=== PATIENT | male | born 1965 | race Caucasian/White ===

== ENCOUNTER 2019-03-31 06:57 | Day surgery (SDC) | payer OTHER ==
[~2019-03-31] VITALS: Ht 182.9 cm; Wt 154.0 kg
[~2019-03-31 06:57] MED LIST: ATEN50 PO; FOLI1 PO; FURO20 PO; Hydroxyzine HCl50 MG PO; MELA3 PO; Nicoderm Cq1 EAC1 TOP; Prozac40 MG PO; SILDENAFIL CIT100 MG PO; TRAZ100 PO; XARELTO20 MG PO
[2019-03-31] MEDS ORDERED: Lipitor20 MG PO (09:44)
--- NOTE | 2019-03-31 11:54 | NUR ---
PT RIGHT RADIAL SITE APPEARS SOFT, NON-TENDER, NO ACTIVE BLEEDING, OOZING, OR PAIN NOTED. TR BAND REMOVED, RED CLOTH DOT DRESSING IN PLACE. ARM BOARD ON FOR SUPPORT, RIGHT ARM PLACED INTO SLING. PT VERBALIZED UNDERSTANDING OF D/C INSTRUCTIONS. PAPERWORK PROVIDED IN [facility]. IV REMOVED FROM LEFT WRIST WITH CATH INTACT. PRESSURE DRESSING APPLIED. NADN AT TIME OF DISPO. PT AMBULATES WITH STEADY GAIT. MOTHER ARRIVES TO DRIVE PT HOME. VSS. ENCOURAGED TO FOLLOW UP WITH PROVIDER SCHEDULED.
== END 2019-03-31 13:25 | disposition home or self-care (01) ==
LOC: MHTC 06:57
DX: I25.10 Atherosclerotic heart disease of native coronary artery without angina pectoris (principal); I10 Essential (primary) hypertension; I48.0 Paroxysmal atrial fibrillation; G47.33 Obstructive sleep apnea (adult) (pediatric); F17.210 Nicotine dependence, cigarettes, uncomplicated; E66.9 Obesity, unspecified; Z79.899 Other long term (current) drug therapy; Z79.01 Long term (current) use of anticoagulants; Z68.42 Body mass index [BMI] 45.0-49.9, adult
CPT/HCPCS: 93454; 99152; 99153; C1769; C1894; J1644; J2250; J3010; J7030; Q9967

== ENCOUNTER 2020-09-02 11:38 | Observation (INO) | payer OTHER ==
[~2020-09-02] VITALS: Ht 188 cm; Wt 159.5 kg
[~2020-09-02 11:38] MED LIST changes: -ATEN50 PO; -FOLI1 PO; -FURO20 PO; +Lipitor20 MG PO; -MELA3 PO; -TRAZ100 PO; -XARELTO20 MG PO
[2020-09-02 12:14] LABS: BASOPHILS ABSOLUTE AUTO 0.03 K/mm3 (0.00-0.23); BASOPHILS PERCENT AUTO 1 % (0-2); EOSINOPHILS ABSOLUTE AUTO 0.04 K/mm3 (0.00-0.68); EOSINOPHILS PERCENT AUTO 1 % (0-6); Hematocrit 43.7 % (37.0-53.0); Hemoglobin 14.8 g/dL (13.5-17.5); IMMATURE GRAN ABSOLUTE AUTO 0.04 K/mm3 (0.00-0.10); IMMATURE GRAN PERCENT AUTO 1 % (0-1); LYMPHOCYTES PERCENT AUTO 27 % (21-46); MONOCYTES ABSOLUTE AUTO 0.87 K/mm3 (0.16-1.47); MONOCYTES PERCENT AUTO 15 % (4-13); Mean Corpuscular HGB 33.3 pg (26.0-34.0); Mean Corpuscular HGB Conc 33.9 g/dL (31.5-36.5); Mean Corpuscular Volume 98 fL (80-100); Mean Platelet Volume 10.1 fL (9.1-12.4); NEUTROPHILS ABSOLUTE AUTO 3.33 K/mm3 (1.96-9.15); NEUTROPHILS PERCENT AUTO 56 % (41-73); NRBC ABSOLUTE 0.02 K/mm3 (0.00-0.02); NRBC Auto 0.3 /100 WBC (0.0-0.2); Platelet Count 160 K/mm3 (150-400); RDW Coefficient Variation 12.3 % (11.7-14.2); RDW Standard Deviation 44.7 fL (35.1-46.3); Red Blood Cell Count 4.45 M/mm3 (4.30-5.90); White Blood Cell Count 5.91 K/mm3 (4.00-11.30)
[2020-09-02 12:34] LABS: Alanine Aminotransfer (ALT/SGP 150 U/L (12-78); Albumin, Blood 3.5 g/dL (3.4-5.0); Albumin/Globulin Ratio 0.9 (0.8-1.8); Alk Phos 88 U/L (50-136); Anion Gap 12 mmol/L (6-16); Aspartate Aminotrans (AST/SGOT 158 U/L (12-37); Bilirubin, Total 2.2 mg/dL (0.1-1.0); Blood Urea Nitrogen 7 mg/dL (8-24); Bun/Creatinine Ratio 7.8 (12.0-20.0); CO2, Blood 32 mmol/L (21-32); Calcium, Blood 9.1 mg/dL (8.5-10.1); Chloride, Blood 93 mmol/L (98-108); Creatinine, Blood 0.89 mg/dL (0.60-1.20); Globulin, Blood 3.9 g/dL (2.2-4.0); Glomerular Filtration Rate >60 (60-); Glucose, Blood 164 mg/dL (70-99); Potassium, Blood 3.3 mmol/L (3.5-5.5); Sodium, Blood 137 mmol/L (136-145); Total Protein, Blood 7.4 g/dL (6.4-8.2); Troponin I <0.015 ng/mL (0.000-0.040)
[2020-09-02] MEDS ORDERED: ATEN25 PO (13:57)
[2020-09-02] MEDS ORDERED: FOLI1 PO (13:58)
[2020-09-02] MEDS ORDERED: XARELTO20 MG PO (13:58)
[2020-09-02] MEDS ORDERED: POTA10T PO (13:59)
[2020-09-02] MEDS ORDERED: FURO40 PO (13:59)
[2020-09-02] MEDS ORDERED: VITAMIN D31000 UNI1 PO (14:00)
[2020-09-02] MEDS ORDERED: TRAZ100 PO (14:01)
[2020-09-02] MEDS ORDERED: MELA3 PO (14:01)
--- NOTE | 2020-09-02 18:14 | NUR ---
NEW ER ADMIT. ARRIVE TO 363 APPROX 1700. PT IS A/O X4, PLEASANT AFFECT. STATE REASON FOR HOSP ONGOING DIZZINESS/LIGHTHEADEDNESS WHEN UP. STATE MULT FALLS @ HOME & HAS EVEN "BLACKED OUT". STATE PROBLEM HAS BEEN ONGOING FOR MONTHS. STATE NO LIGHTHEADNESS @ REST GENERALLY. STATE HX JAKOB, S/O BRING IN HOME CPAP, RT NOTIFIED. PT STATE HX ETOH ABUSE & ETOH W/D SYMPTOMS, DR JOY NOTIFIED, PLACE ETOH/CIWA ORDERS. PT STATE HX AFIB, ON XARELTO, TELE NSR 80-90 SKIN IS FLUSHED, BILAT HAND TREMOR NOTED, CIWA 5 @ THIS TIME, VSS. CARDIAC DINNER TRAY ORDERED. PT ORIENTED TO , CALL SYSTEM, FALL & ETOH W/D PRECAUTIONS.
[2020-09-03 05:08] LABS: Anion Gap 5 mmol/L (6-16); Blood Urea Nitrogen 9 mg/dL (8-24); Bun/Creatinine Ratio 9.4 (12.0-20.0); CO2, Blood 37 mmol/L (21-32); Calcium, Blood 9.2 mg/dL (8.5-10.1); Chloride, Blood 92 mmol/L (98-108); Creatinine, Blood 0.96 mg/dL (0.60-1.20); Glomerular Filtration Rate >60 (60-); Glucose, Blood 169 mg/dL (70-99); Potassium, Blood 3.4 mmol/L (3.5-5.5); Sodium, Blood 134 mmol/L (136-145)
--- NOTE | 2020-09-03 05:39 | NUR ---
SHIFT SUMMARY- PT. A&O, PLEASANT, AND COOPERATIVE WITH CARE. INDEPENDENT IN ROOM, INSTRUCTED TO CALL FOR ASSISTANCE W/AMBULATION FOR DIZZINESS, WEAKNESS OR PRN, VERBALIZED UNDERSTANDING. DENIED ANY PAIN OR DISCOMFORT T/O THE NIGHT. CIWA SCORE= 3. PT. WITH C/O MILD ANXIETY, REQUESTED ATIVAN. MEDICATED WITH ATIVAN PER ORDER, PT. REPORTED GOOD EFFECT. APPEARED TO HAVE SLEPT COMFORTABLY T/O THE NIGHT WITH CPAP IN PLACE, NO APPARENT DISTRESS NOTED. VSS, PT. ANTICIPATING D/C TODAY. CALL LIGHT WITHIN REACH AND SIDE RAILS UPX2. WILL CONT TO MONITOR.
[2020-09-03] MEDS ORDERED: METO25 PO (11:38)
--- NOTE | 2020-09-03 11:54 | NUR ---
DISCHARGE PT UP IN CHAIR THIS AM FOR BF. STATE NO DIZZINESS @ REST HOWEVER STATES CONTINUES INTERMITTANTLY WHEN UP. PHYTHER EVAL THIS AM STATE PT BP DID DROP FROM SITTING STEVEN STANDING, 117/60 SITTING TO 100/[address] SCHULTZ NOTIFIED DURING AM ROUNDING, STATE PT MAY GO HOME TODAY w [facility], [facility] FITTER NOTIFY HRT CTR. IV D/C INTACT. TELE D/C'D. PT ASSISTED TO SHOWER. CIWA THIS AM 2 D/T BUE TREMOR. PT EDUCATED R/T ABSTINECE ETOH HOWEVER STATE @ THIS TIME NOT READY, STATE KNOWLEDGE OF STEPS TO TAKE WHEN READY TO QUIT.
--- NOTE | 2020-09-03 13:22 | NUR ---
HRT CTR OVER TO PLACE BIO PATCH, GIVE INSTRUCTIONS, PT TO F/U w PON[facility] ROLL FINISHER 1 WK HE STATE HE WILL CALL DR MENENDEZ TO SET UP APPOINT. ADDITIONAL D/C INSTRUCT REVIEWED w PT, NEW SCRIPT SENT TO [facility]/REQUEST. W/C ESCORT FROM HOSP PROVIDED, HERE FOR TRANSPORT HOME.
== END 2020-09-03 12:57 | disposition home or self-care (01) ==
LOC: ER 11:38 → MEDS 11:39
PROVIDERS: Nurse Practitioner Acute Care; Physician Assistant; ADMIT Internal Medicine
DX: R55 Syncope and collapse (principal); I48.0 Paroxysmal atrial fibrillation; E66.01 Morbid (severe) obesity due to excess calories; I10 Essential (primary) hypertension; G47.33 Obstructive sleep apnea (adult) (pediatric); F10.20 Alcohol dependence, uncomplicated; Z79.01 Long term (current) use of anticoagulants; Z96.652 Presence of left artificial knee joint; Z98.84 Bariatric surgery status; Z87.891 Personal history of nicotine dependence; Z91.81 History of falling; Z68.41 Body mass index [BMI] 40.0-44.9, adult
CPT/HCPCS: 36415; 71046; 80048; 80053; 82607; 82746; 83880; 84484; 85025; 93005; 93010; 93246; 94762; 97161; 99285-25; A9270; G0378

== ENCOUNTER 2020-10-21 00:47 | Inpatient (IN) | payer OTHER ==
[~2020-10-21] VITALS: Ht 182.9 cm; Wt 169.2 kg
[~2020-10-21 00:47] MED LIST changes: +ATEN25 PO; +FOLI1 PO; +FURO40 PO; +MELA3 PO; +METO25 PO; +POTA10T PO; +TRAZ100 PO; +VITAMIN D31000 UNI1 PO; +XARELTO20 MG PO
[2020-10-21 01:11] LABS: PO2 Arterial 62.2 mmHg (80-100)
[2020-10-21 01:12] LABS: PCO2 Arterial 77 mmHg (35-45); pH Blood Arterial 7.04 (7.35-7.45)
[2020-10-21 01:19] LABS: BASOPHILS ABSOLUTE AUTO 0.04 K/mm3 (0.00-0.23); BASOPHILS PERCENT AUTO 1 % (0-2); EOSINOPHILS ABSOLUTE AUTO 0.06 K/mm3 (0.00-0.68); EOSINOPHILS PERCENT AUTO 1 % (0-6); Hematocrit 40.9 % (37.0-53.0); Hemoglobin 12.6 g/dL (13.5-17.5); Mean Corpuscular HGB 33.8 pg (26.0-34.0); Mean Corpuscular HGB Conc 30.8 g/dL (31.5-36.5); Mean Corpuscular Volume 110 fL (80-100); Mean Platelet Volume 10.7 fL (9.1-12.4); NRBC ABSOLUTE 0.06 K/mm3 (0.00-0.02); NRBC Auto 0.8 /100 WBC (0.0-0.2); Platelet Count 128 K/mm3 (150-400); RDW Coefficient Variation 13.4 % (11.7-14.2); RDW Standard Deviation 55.2 fL (35.1-46.3); Red Blood Cell Count 3.73 M/mm3 (4.30-5.90); White Blood Cell Count 7.71 K/mm3 (4.00-11.30)
[2020-10-21 01:20] LABS: IMMATURE GRAN ABSOLUTE AUTO 0.39 K/mm3 (0.00-0.10); IMMATURE GRAN PERCENT AUTO 5 % (0-1); LYMPHOCYTES ABSOLUTE AUTO 4.44 K/mm3 (0.84-5.20); LYMPHOCYTES PERCENT AUTO 58 % (21-46); MONOCYTES ABSOLUTE AUTO 0.42 K/mm3 (0.16-1.47); MONOCYTES PERCENT AUTO 5 % (4-13); NEUTROPHILS ABSOLUTE AUTO 2.36 K/mm3 (1.96-9.15); NEUTROPHILS PERCENT AUTO 31 % (41-73)
[2020-10-21 01:20] LABS: Source, Urine Catheter
[2020-10-21 01:24] LABS: Bilirubin, Urine Neg (Neg); Blood, Urine Neg (Neg); Glucose Qualitative, Urine Neg (Neg); Ketones, Urine Neg (Neg); Leukocyte Esterase, Urine Neg (Neg); Nitrite, Urine Neg (Neg); Protein, Urine Neg (Neg); Urobilinogen, Urine NORM (Normal)
[2020-10-21 01:27] LABS: Appearance, Urine Clear (Clear); Color, Urine Yellow (P-Yellow)
[2020-10-21 01:35] LABS: U Amphetamine Screen Not Detected; U Barbituate Screen Not Detected; U Benzodiazapine Screen Not Detected; U Buprenorphine Screen Not Detected; U Cannabinoids Screen DETECTED; U Cocaine Screen Not Detected; U Methadone Screen Not Detected; U Methamphetamine Screen Not Detected; U Opiates Screen Not Detected; U Oxycodone Screen Not Detected; U Phencyclidine Screen Not Detected; U Propoxyphene Screen Not Detected
[2020-10-21 01:46] LABS: Alanine Aminotransfer (ALT/SGP 107 U/L (12-78); Albumin, Blood 2.8 g/dL (3.4-5.0); Albumin/Globulin Ratio 0.8 (0.8-1.8); Alk Phos 110 U/L (50-136); Anion Gap 22 mmol/L (6-16); Aspartate Aminotrans (AST/SGOT 175 U/L (12-37); Bilirubin, Total 1.1 mg/dL (0.1-1.0); Blood Urea Nitrogen 9 mg/dL (8-24); Bun/Creatinine Ratio 9.1 (12.0-20.0); CO2, Blood 21 mmol/L (21-32); Calcium, Blood 8.6 mg/dL (8.5-10.1); Chloride, Blood 97 mmol/L (98-108); Creatinine, Blood 0.99 mg/dL (0.60-1.20); Ethanol (Alcohol), Blood, Med 121 mg/dL; Globulin, Blood 3.5 g/dL (2.2-4.0); Glomerular Filtration Rate >60 (60-); Glucose, Blood 329 mg/dL (70-99); Magnesium, Blood 2.5 mg/dL (1.6-2.4); Potassium, Blood 4.1 mmol/L (3.5-5.5); Sodium, Blood 140 mmol/L (136-145); Total Protein, Blood 6.3 g/dL (6.4-8.2); Troponin I 0.046 ng/mL (0.000-0.040)
[2020-10-21 03:02] LABS: PCO2 Arterial 48.1 mmHg (35-45); PO2 Arterial 208 mmHg (80-100); pH Blood Arterial 7.19 (7.35-7.45)
[2020-10-21 04:11] LABS: Hematocrit 45.8 % (37.0-53.0); Hemoglobin 14.9 g/dL (13.5-17.5); Mean Corpuscular HGB 33.9 pg (26.0-34.0); Mean Corpuscular HGB Conc 32.5 g/dL (31.5-36.5); Mean Platelet Volume 10.2 fL (9.1-12.4); NRBC ABSOLUTE 0.05 K/mm3 (0.00-0.02); NRBC Auto 0.4 /100 WBC (0.0-0.2); Platelet Count 143 K/mm3 (150-400); RDW Coefficient Variation 13.4 % (11.7-14.2); RDW Standard Deviation 52.2 fL (35.1-46.3); Red Blood Cell Count 4.39 M/mm3 (4.30-5.90); White Blood Cell Count 11.41 K/mm3 (4.00-11.30)
[2020-10-21 04:12] LABS: Mean Corpuscular Volume 104 fL (80-100)
[2020-10-21 04:25] LABS: Anion Gap 21 mmol/L (6-16); Blood Urea Nitrogen 11 mg/dL (8-24); Bun/Creatinine Ratio 9.1 (12.0-20.0); CO2, Blood 22 mmol/L (21-32); Calcium, Blood 8.6 mg/dL (8.5-10.1); Chloride, Blood 99 mmol/L (98-108); Creatinine, Blood 1.21 mg/dL (0.60-1.20); Glomerular Filtration Rate >60 (60-); Glucose, Blood 229 mg/dL (70-99); Potassium, Blood 3.4 mmol/L (3.5-5.5); Sodium, Blood 142 mmol/L (136-145)
--- NOTE | 2020-10-21 05:28 | NUR ---
IO TO LEFT LEG REMOVED WITHOUT DIFFICULTY
--- NOTE | 2020-10-21 06:30 | NUR ---
SUMMARY PATIENT ARRIVED TO ICU AT 0330, PATIENT TRANSFERRED TO BED USING SLIDER SHEET AND PLACED ON ICU MONITORS. PATIENT INCONT OF LIQUID ORANGE/RED STOOL TWICE, RECTAL TUBE PLACED AND PATIENT HAD ANOTHER 500 CC OF LIQUID STOOL. SPEC SENT TO LAB. PATIENT REMAINS INTUBATED AND SEDATED, VENT AC 20, TV 550, PEEP 10, FIO2 60% FENTANYL 50 MCG/HR AND VERSED 4 MG/HR FOR SEDATION. LEVOPHED TITRATED OFF. OG IN PLACE PLACED TO LIS WITH NO DRAINAGE.
[2020-10-21 07:00] LABS: Adenovirus F 40/41 Not Detected (NOT DETECT); Astrovirus Not Detected (NOT DETECT); Campylobacter Sp Not Detected (NOT DETECT); Cryptosporidium Not Detected (NOT DETECT); Cyclospora Cayetanensis Not Detected (NOT DETECT); E. Coli O157 Not Detected (NOT DETECT); Entamoeba Histolytica Not Detected (NOT DETECT); Enteroaggregative E. coli-EAEC Not Detected (NOT DETECT); Enteropathogenic E. coli-EPEC Not Detected (NOT DETECT); Enterotoxigenic E. coli-ETEC Not Detected (NOT DETECT); Giardia Lamblia Not Detected (NOT DETECT); Norovirus GI/GII Not Detected (NOT DETECT); Plesiomonas Shigelloides Not Detected (NOT DETECT); Rotavirus A Not Detected (NOT DETECT); Salmonella Sp Not Detected (NOT DETECT); Sapovirus Not Detected (NOT DETECT); Shiga Toxin-prod E. coli-STEC Not Detected (NOT DETECT); Shigella/Enteroin E. coli-EIEC Not Detected (NOT DETECT); Vibrio Cholerae Not Detected (NOT DETECT); Vibrio Sp Not Detected (NOT DETECT); Yersinia Enterocolitica Not Detected (NOT DETECT)
[2020-10-21 09:06] LABS: International Normalized Ratio 1.36; Prothrombin Time Results 14.3 Sec (9.7-11.5)
--- NOTE | 2020-10-21 10:00 | NUR ---
CARE ASSUMED ASSESSMENTS COMPLETED. PT INTUBATED, SEDATED WITH FENTANYL AND VERSED, IS UNRESPONSIVE. PUPILS UNEQUAL, FIXED, NO MOVMEMENT NOTED. VSS UPON ARRIVAL, THEN DURING ASSESSMENT PT WENT INTO BIGEMINY, THEN INTO RAPID AFIB RATE 130-160'S. DR JON NOTIFIED, NEW ORDERS, METOPROLOL ADMINISTERED. VENT SETTINGS AC 20, VT 550, FIO2 55%, PEEP 8, SPO2 >90%, RR 20. LS DIM IN BASES, COARSE IN UPPER LOBES, SMALL AMOUNT OF YELLOW SPUTUM FROM ETT. ABD DISTENDED, SOFT WITH BT PRESENT, RECTAL TUBE IN PLACE WITH LIQUID STOOL AND ANIBAL BLOOD. URINARY CATH WITH SMALL AMOUNT DARK CLOUDY URINE. EXTREMS COOL TO TOUCH, CAP REFILL SLUGGISH. DR. BUCKLEY IN TO ASSESS AFTER INITIAL DOSE OF METOPROLOL, HR REMAINS ELEVATED, BP STABLE. ADDITIONAL 10MG METOPROLOL ADMINISTERED INCREMENTALLY, METOPROLOL GTT INTITIATED. BP DROPPED AFTER GTT INITIATED, UNABLE TO MAINTAIN MAP >60 AFTER STOPPING GTT, SMALL FLUID BOLUS, AND REVERSE [place] POSITION, LEVOPHED RESUMED, DR. JON NOTIFIED. LEVOPHED UP TO 30MCG BEFORE BP STABILIZED. HR 115-140'S AFIB WITH PVC'S. PT REMAINS UNRESPONSIVE.
[2020-10-21 12:10] LABS: PCO2 Arterial 46.8 mmHg (35-45); PO2 Arterial 113 mmHg (80-100); pH Blood Arterial 7.39 (7.35-7.45)
[2020-10-21 13:07] LABS: BASOPHILS ABSOLUTE AUTO 0.04 K/mm3 (0.00-0.23); BASOPHILS PERCENT AUTO 1 % (0-2); EOSINOPHILS ABSOLUTE AUTO 0.01 K/mm3 (0.00-0.68); EOSINOPHILS PERCENT AUTO 0 % (0-6); Hematocrit 42.6 % (37.0-53.0); Hemoglobin 14.1 g/dL (13.5-17.5); IMMATURE GRAN ABSOLUTE AUTO 0.07 K/mm3 (0.00-0.10); IMMATURE GRAN PERCENT AUTO 1 % (0-1); LYMPHOCYTES ABSOLUTE AUTO 0.99 K/mm3 (0.84-5.20); LYMPHOCYTES PERCENT AUTO 13 % (21-46); MONOCYTES ABSOLUTE AUTO 0.46 K/mm3 (0.16-1.47); MONOCYTES PERCENT AUTO 6 % (4-13); Mean Corpuscular HGB 34.1 pg (26.0-34.0); Mean Corpuscular HGB Conc 33.1 g/dL (31.5-36.5); Mean Corpuscular Volume 103 fL (80-100); Mean Platelet Volume 10.2 fL (9.1-12.4); NEUTROPHILS ABSOLUTE AUTO 6.12 K/mm3 (1.96-9.15); NEUTROPHILS PERCENT AUTO 80 % (41-73); NRBC ABSOLUTE 0.03 K/mm3 (0.00-0.02); NRBC Auto 0.4 /100 WBC (0.0-0.2); Platelet Count 133 K/mm3 (150-400); RDW Coefficient Variation 13.9 % (11.7-14.2); Red Blood Cell Count 4.13 M/mm3 (4.30-5.90); White Blood Cell Count 7.69 K/mm3 (4.00-11.30)
[2020-10-21 13:27] LABS: Alanine Aminotransfer (ALT/SGP 141 U/L (12-78); Albumin, Blood 2.6 g/dL (3.4-5.0); Albumin/Globulin Ratio 0.8 (0.8-1.8); Alk Phos 100 U/L (50-136); Anion Gap 12 mmol/L (6-16); Aspartate Aminotrans (AST/SGOT 322 U/L (12-37); Bilirubin, Total 1.6 mg/dL (0.1-1.0); Blood Urea Nitrogen 14 mg/dL (8-24); Bun/Creatinine Ratio 11.2 (12.0-20.0); CO2, Blood 25 mmol/L (21-32); Calcium, Blood 7.8 mg/dL (8.5-10.1); Chloride, Blood 103 mmol/L (98-108); Creatinine, Blood 1.25 mg/dL (0.60-1.20); Globulin, Blood 3.3 g/dL (2.2-4.0); Glomerular Filtration Rate >60 (60-); Glucose, Blood 325 mg/dL (70-99); Magnesium, Blood 1.8 mg/dL (1.6-2.4); Phosphorus, Blood 3.4 mg/dL (2.5-4.9); Potassium, Blood 3.9 mmol/L (3.5-5.5); Sodium, Blood 140 mmol/L (136-145); Total Protein, Blood 5.9 g/dL (6.4-8.2)
[2020-10-21] MEDS ORDERED: DABI150C PO (15:27)
[2020-10-21] MEDS ORDERED: B-1100 M1 PO (15:28)
--- NOTE | 2020-10-21 15:46 | NUR ---
UPDATE PT REMAINS ON LEVOPHED AT 25MCG, UNABLE TO TITRATE DOWN ANY FURHTER AT THIS TIME. HR 100-110'S, REMAINS IN AFIB. FAMILY AT BEDSIDE, HAS BEEN GIVEN UPDATES BY THIS RN AND DR. JON. SCANT AMOUNT OF ANIBAL BLOOD FROM OG SUCTIONING, RECTAL DRAINAGE REMAINS BLOODY. NO CHANGES NOTED IN NEURO STATUS. VENT SETTINGS CURRENTLY AC 20, Vt 550, PEEP 10, FIO2 70%, SPO2 >95, RR 20. LS BECOMING MORE COARSE, SPUTUM INCREASED TO MODERATE AMOUNT, GREEN/YELLOW IN COLOR. EXTREMS REMAIN COOL TO TOUCH WITH SLUGGIS CAP REFILL.
[2020-10-21 16:59] LABS: Hematocrit 43.3 % (37.0-53.0); Hemoglobin 14.4 g/dL (13.5-17.5)
--- NOTE | 2020-10-21 18:36 | NUR ---
Spiritual care note: Provided supportive visit to Alfredo's mom, Katherine. She is strong in her Protestant zachery and told me about Alfredo's struggles with ETOH. Katherine verbalizes understanding that Alfredo most likely won't "come out of this" well. She expresses the desire to make Alfredo as comfortable as possible and "allow God to take him." She is Alfredo's "adoptive mom." Alfredo lives with a woman, but they are not . According to Katherine, Alfredo had spoken to her a few months ago and told her what to do if he ever was in this condition. Per Katherine, Alfredo wanted her to be his MPOA and to allow a natural if he was unable to return to baseline. Katherine responded well to grief counsellor and we prayed together for God's will to be done. She was tearful throughout, but quite appropriate. I will remain available.
--- NOTE | 2020-10-21 19:08 | NUR ---
Pt sedated on ventilator, called to meet with mother and discuss code status. redd crane intesisivt review possible with drawl of care. Review of patients AD with mother and dis polst to match his wishes. Pt is now DNR. Will continue care until next CT scan and the have a plan. Security Installer called to support pt mother who is grieving.
--- NOTE | 2020-10-21 19:30 | NUR ---
PATIENT INTUBATED WITH VENT SET AT AC 20, TV 550, PEEP 10, FIO2 55% NO SEDATION INFUSING. PATIENT NOT RESPONDING TO STIMULI, NO GAG NO COUGH, PUPILS 4 AND FIXED. LEVOPHED 25 MCG INFUSING FOR HYPOTENSION, MONITOR SHOWING AFIB WITH RATE 120-[address] IN [address] WITH NO OUTPUT, SUCTION OFF AND TUBE CLAMPED. RECTAL TUBE REMAINS IN PLACE DRAINING LIQUID BROWN STOOL.
--- NOTE | 2020-10-21 19:46 | NUR ---
END OF SHIFT PT REMAINS ON LEVOPHED 25MCG, UNABLE TO TITRATE DOWN DESPITE ATTEMPTS. HR REMAINS 100-140'S AFIB, ONE SHORT RUN OF VT THIS AM, NO OTHER EPISODES OBSERVED. NEURO STATUS UNCHANGED, PT REMAINS UNRESPONSIVE WITH NO MOVEMENT OF EXTREMS, PUPILS FIXED AND DILATED. REMAINS ON MECHANICAL VENT WITH NO SEDATION, SETTINGS AC 20, VT 550, PEEP 10, FIO2 60%. LS COARSE T/O, THICK YELLOW GREEN SPUTUM FROM ETT. ABD DISTENDED, SOFT, BT RARE. 50ML LIQUID STOOL THIS SHIFT, LESS BLOODY THAN THIS AM. SCANT ANIBAL BLOOD FROM OGT. FAMILY AT BEDSIDE T/O SHIFT, EX MOTHER IN LAW YESSI SINGLETON IS POA, SIGNED POLST AND PT IS NOW DNR. REPORT TO ONCOMING SHIFT.
--- NOTE | 2020-10-21 20:00 | NUR ---
DOCTOR JON PLACED CENTRAL LINE TO LEFT SUBCLAVIAN FOR LEVOPHED AND ORDER OBTAINED FOR VASOPRESSIN.
--- NOTE | 2020-10-21 20:30 | NUR ---
POST CENTRAL LINE PLACEMENT CHEST XRAY SEEN BY DOCTOR DANAY GARRETT TO USE CENTRAL LINE. OG SHOWING COIL AND NOT IN GOOD PLACEMENT, OG REMOVED.
--- NOTE | 2020-10-21 22:17 | NUR ---
AFTER MULTIPLE ATTEMPTS, ABLE TO REPLACE OG WITH A 14 FR SUMP TUBE.
--- NOTE | 2020-10-22 00:55 | NUR ---
DISCUSSED PATIENTS NEURO STATUS AND HISTORY WITH JOSI WITH DONOR LINE
[2020-10-22 03:41] LABS: PCO2 Arterial 40.9 mmHg (35-45); PO2 Arterial 66.2 mmHg (80-100); pH Blood Arterial 7.46 (7.35-7.45)
[2020-10-22 04:25] LABS: BASOPHILS ABSOLUTE AUTO 0.04 K/mm3 (0.00-0.23); BASOPHILS PERCENT AUTO 1 % (0-2); EOSINOPHILS ABSOLUTE AUTO 0.08 K/mm3 (0.00-0.68); EOSINOPHILS PERCENT AUTO 1 % (0-6); Hematocrit 38.8 % (37.0-53.0); Hemoglobin 12.9 g/dL (13.5-17.5); IMMATURE GRAN ABSOLUTE AUTO 0.06 K/mm3 (0.00-0.10); IMMATURE GRAN PERCENT AUTO 1 % (0-1); LYMPHOCYTES ABSOLUTE AUTO 2.17 K/mm3 (0.84-5.20); LYMPHOCYTES PERCENT AUTO 28 % (21-46); MONOCYTES ABSOLUTE AUTO 1.06 K/mm3 (0.16-1.47); MONOCYTES PERCENT AUTO 14 % (4-13); Mean Corpuscular HGB 34.2 pg (26.0-34.0); Mean Corpuscular HGB Conc 33.2 g/dL (31.5-36.5); Mean Corpuscular Volume 103 fL (80-100); Mean Platelet Volume 10.9 fL (9.1-12.4); NEUTROPHILS ABSOLUTE AUTO 4.44 K/mm3 (1.96-9.15); NEUTROPHILS PERCENT AUTO 57 % (41-73); NRBC ABSOLUTE 0.04 K/mm3 (0.00-0.02); NRBC Auto 0.5 /100 WBC (0.0-0.2); Platelet Count 135 K/mm3 (150-400); RDW Coefficient Variation 14.3 % (11.7-14.2); RDW Standard Deviation 54.3 fL (35.1-46.3); Red Blood Cell Count 3.77 M/mm3 (4.30-5.90); White Blood Cell Count 7.85 K/mm3 (4.00-11.30)
[2020-10-22 04:38] LABS: Albumin, Blood 2.4 g/dL (3.4-5.0); Anion Gap 10 mmol/L (6-16); Blood Urea Nitrogen 19 mg/dL (8-24); Bun/Creatinine Ratio 7.9 (12.0-20.0); CO2, Blood 29 mmol/L (21-32); Calcium, Blood 7.5 mg/dL (8.5-10.1); Chloride, Blood 100 mmol/L (98-108); Creatinine, Blood 2.39 mg/dL (0.60-1.20); Glomerular Filtration Rate 30 (60-); Glucose, Blood 242 mg/dL (70-99); Phosphorus, Blood 1.9 mg/dL (2.5-4.9); Potassium, Blood 4.2 mmol/L (3.5-5.5); Sodium, Blood 139 mmol/L (136-145)
[2020-10-22 04:45] LABS: Magnesium, Blood 1.1 mg/dL (1.6-2.4)
--- NOTE | 2020-10-22 04:47 | NUR ---
PATIENT CONTINUES TO BE UNRESPONSIVE TO STIMULI. HEART RATE UP TO 160-180'S WITH STIMULI, BACK TO 120-140 AFIB WHEN ROOM IS CALM. YELLOW SCLERAL EDEMA TO BOTH EYES.
--- NOTE | 2020-10-22 05:07 | NUR ---
DOCTOR DANAY NOTIFIED OF AM CHEM, AND PATIENTS HEART RATE. SEE NEW ORDERS
--- NOTE | 2020-10-22 06:37 | NUR ---
PATIENT REMAINS INTUBATED WITH VENT AC 20, TV 550, PEEP 10, FIO2 55% NO SEDATION, PATIENT CONTINUES TO BE UNRESPONSIVE. NO MOVEMENT SEEN IN EXTREMITIES. PUPILS REMAIN 4 CM AND FIXED. NO COUGH OR GAG CONTINUES. LEVOPHED 10 MCG AND VASOPRESSIN 0.04 UNITS CONTINUE FOR HYPOTENSION. AFIB CONTINUES 120-140 UP TO 160-180'S WITH STIMULI. OG IN PLACE AND CLAMPED. RECTAL TUBE CONTINUES TO DRAIN LIQUID BROWN STOOL.
--- NOTE | 2020-10-22 07:40 | NUR ---
DR. BUCKLEY IN TO SEE PT THIS AM NO NEW ORDERS AT THIS TIME.
--- NOTE | 2020-10-22 08:30 | NUR ---
CARE ASSUMED ASSESSMENTS COMPLETED, PT REMAINS ON VENT AC 20, Vt 550, PEEP 10, FIO2 55%. RR 20, SPO2 >90%, THICK YELLOW SPUTUM FROM ETT, SOME COARSE BREATH SOUNDS THAT CLEAR WITH SUCTIONING. HR 130-160 AFIB, BP STABLE, VASO OFF. LEVO AT 8, WILL TITRATE TO EFFECT. PULSES FAINT IN ALL EXTREMS. PT NOT OVERBREATHING VENT, PUPILS EQUAL TODAY BUT REMAIN NONREACTIVE, NO EYE MOVEMENT. NO RESPONSE TO PAIN, NO MOVEMENT OF EXTREMETIES, NO PLANTAR REFLEX. MCBRIDE REMAINS PATENT AND DRAINING, URINE OUTPUT LOW, URINE DARK. RECTAL TUBE IN PLACE, STOOL BROWN TODAY, REMAINS LIQUID, SMALL OUTPUT. SO AND POA UPDATED ON STATUS.
--- NOTE | 2020-10-22 12:03 | NUR ---
UPDATE PT TO CT WITHOUT INCIDENT, PT NEURO STATUS UNCHANGED, HR 120-[address] RECEIVED, DR. FELICIANO. PLANNING FOR APNEA TEST, TAX MANAGER PUBLIC IN CONTACT WITH ORGAN DONATION TEAM. TO UPDATE FAMILY. INCREASING LEVOPHED TO KEEP MAP >60.
[2020-10-22 13:23] LABS: PCO2 Arterial 41.1 mmHg (35-45); PO2 Arterial 79.3 mmHg (80-100); pH Blood Arterial 7.44 (7.35-7.45)
[2020-10-22 14:35] LABS: PCO2 Arterial 77.8 mmHg (35-45); PO2 Arterial 52.4 mmHg (80-100); pH Blood Arterial 7.21 (7.35-7.45)
--- NOTE | 2020-10-22 15:01 | NUR ---
UPDATE CT RESULTS EXPLAINED TO PT'S POA BY DR. JON, POA VERBALIZES UNDERSTANDING. APNEA TEST COMPLETED, CO2 ON ABG AT END OF TEST 77, DR. AWARE. MECHANICAL VENTILLATION RESUMED AC 20, Vt 550, PEEP 10, FIO2 100%, SPO2 92%. PT'S FAMILY REMAINS AT BEDSIDE, ORGAN DONOR FAMILY LIASON TO BE IN CONTACT WITH FAMILY. LEVO 25, HR 140-160'S AFIB.
--- NOTE | 2020-10-22 17:40 | NUR ---
Doctor Mandie did apnea test, pt non responding cleared by donr kathe. plan is comfort care.
--- NOTE | 2020-10-22 17:44 | NUR ---
UPDATE - COMFORT CARE ORGAN DONATION TEAM EVALUATED PT AND DEEMED HIM NOT A DONOR D/T ADVANCED DIRECTIVE WISHES, DESPITE DRIVERS LICENSE STATING PT WAS A REGISTERED DONOR, DR. JON AWARE. PALLIATIVE NURSE AND CLINICAL INFORMATICS PHYSICIAN AT BEDSIDE TO SPEAK WITH PT FAMILY WHO ARE MADE AWARE OF SITUATION, PATIENTS HEALTHCARE F[employer]ERGL[employer] QUALITY TECHNICIAN (PREVIOUSLY NOTED POA IN ERROR), PT'S EX MOTHER IN LAW REPORTS THAT SHE AND THE FAMILY ARE READY TO WITHDRAW CARE. ORDERS RECIEVED, PLANNING FOR EXTUBATION TO COMFORT.
--- NOTE | 2020-10-22 18:35 | NUR ---
TIME OF FAMILY AT BEDSIDE WITH PALLIATIVE NURSE AND HEALTHCARE MANAGEMENT. LEVOPHED AND LR DC'D, PT EXTUBATED AT 1755, PT ASYSTOLIC AT 1800. PT DID NOT TAKE ANY BREATHS AFTER EXTUBATION. WILL NOTIFY [facility]EL OF THE ROSES PER FAMILY REQUEST. TIME OF BRAIN 1434.
--- NOTE | 2020-10-22 18:53 | NUR ---
Spiritual care note: Provided counselor nurses' association, prayer and comfort to family throughout the day. Present during physician explaination of brain . Family understands and accepts allowing Alfredo "to go" as best plan. I stayed with family throughout extubation, providing prayer and gentle counselor nurses' association. Family tearful, but appropriate. Family selected [facility] for final arrangements. "Mom", Katherine, to be contact for home. Alfredo passed peacefully thanks to great nursing.
== END 2020-10-22 18:00 | DRG 296 ==
LOC: ER 00:47 → ICUW 03:30
PROVIDERS: Emergency Medicine; Family Medicine; Internal Medicine Cardiovascular Disease; Internal Medicine Critical Care Medicine; ADMIT Internal Medicine
PROC: 3E033XZ Introduction of Vasopressor into Peripheral Vein, Percutaneous Approach (ICD-10-PCS; principal; 2020-10-21)
PROC: 0BH18EZ Insertion of Endotracheal Airway into Trachea, Via Natural or Artificial Opening Endoscopic (ICD-10-PCS; 2020-10-21)
PROC: 05H633Z Insertion of Infusion Device into Left Subclavian Vein, Percutaneous Approach (ICD-10-PCS; 2020-10-21)
PROC: 5A1945Z Respiratory Ventilation, 24-96 Consecutive Hours (ICD-10-PCS; 2020-10-21)
DX: I46.9 Cardiac arrest, cause unspecified (principal); J96.00 Acute respiratory failure, unspecified whether with hypoxia or hypercapnia; J18.9 Pneumonia, unspecified organism; G93.6 Cerebral edema; G93.5 Compression of brain; E87.4 Mixed disorder of acid-base balance; G93.1 Anoxic brain damage, not elsewhere classified; N17.9 Acute kidney failure, unspecified; D62 Acute posthemorrhagic anemia; R55 Syncope and collapse; Z51.5 Encounter for palliative care; J44.9 Chronic obstructive pulmonary disease, unspecified; R57.0 Cardiogenic shock; Z66 Do not resuscitate; I48.0 Paroxysmal atrial fibrillation; I10 Essential (primary) hypertension; G47.33 Obstructive sleep apnea (adult) (pediatric); I25.10 Atherosclerotic heart disease of native coronary artery without angina pectoris; E66.01 Morbid (severe) obesity due to excess calories; E78.5 Hyperlipidemia, unspecified; Z96.652 Presence of left artificial knee joint; Y90.6 Blood alcohol level of 120-199 mg/100 ml; F10.229 Alcohol dependence with intoxication, unspecified; E11.65 Type 2 diabetes mellitus with hyperglycemia; E83.42 Hypomagnesemia; E87.6 Hypokalemia; D72.829 Elevated white blood cell count, unspecified; D69.6 Thrombocytopenia, unspecified; Z90.89 Acquired absence of other organs; Z90.3 Acquired absence of stomach [part of]; Z87.891 Personal history of nicotine dependence; Z98.890 Other specified postprocedural states; Z79.01 Long term (current) use of anticoagulants; Z79.899 Other long term (current) drug therapy; Z68.38 Body mass index [BMI] 38.0-38.9, adult
CPT/HCPCS: 0097U; 31500; 36415; 36600; 51702; 70450; 71045; 72125; 80048; 80053; 80069; 81003; 82330; 82803; 82947; 83605; 83735; 83880; 84100; 84484; 85014; 85018; 85025; 85027; 85610; 86850; 86900; 86901; 87040; 87070; 87205; 87324; 92953; 93005; 93010; 93306; 94002; 94003; 96365-59; 96375-59; 99291-25; 99292; A9270; C1751; G0480; J0330; J0461; J2250; J2704; J3010; J3475; J7030; J7050; J7060; J7120